=== PATIENT | female | born 1965 | race Caucasian/White ===

== ENCOUNTER → 2018-09-27 | Outpatient (CLI) | payer OTHER ==
[~2018-09-27] MED LIST: BUPIVACAINE MPF 0.5% 10 ML VIAL for KCIC. IM ONE; EXEN2VIA SQ; IOHEXOL 300 MG/ML 50 ML VIAL. INT ART ONE; LIDOCAINE 1% Multi-Dose 20 ML VIAL. ID ONE; SITA25TA PO; methylPREDNISolone ACETATE 40 MG/ML VIAL. INT ART ONE
--- NOTE | 2018-09-27 16:55 | KCIC ---
Examination: Fluoro Guided Therapeutic injection right hip. History: Right hip pain Relative benefits risks and alternatives to the procedure were discussed and verbal and written informed consent was obtained. The patient was carefully prepped and draped in a sterile fashion. Lidocaine was used for local anesthesia. A 22-gauge spinal needle was advanced to the level of the hip joint at the femoral neck. 2 a mixture of 4 cc of lidocaine, 4 cc of bupivacaine, 4 cc of Omnipaque 300 and 80 mg of Depo-Medrol was injected. Digital image was obtained showing contrast in the joint. Single fluoroscopic image was obtained. Impression: Therapeutic injection right hip. 26 seconds of fluoroscopy was used for the procedure. Electronically signed by: Nikolas Spain MD (09/27/2018 4:52 PM) [id number]
== END ==
LOC: KCIC 14:58
PROVIDERS: ATTEND Orthopaedic Surgery Sports Medicine
DX: M25.551 Pain in right hip (principal)
CPT/HCPCS: 20610; 77002; J1030; Q9967

== ENCOUNTER → 2021-01-23 | Outpatient (CLI) | payer OTHER ==
[~2021-01-23] MED LIST changes: -BUPIVACAINE MPF 0.5% 10 ML VIAL for KCIC. IM ONE; -IOHEXOL 300 MG/ML 50 ML VIAL. INT ART ONE; -LIDOCAINE 1% Multi-Dose 20 ML VIAL. ID ONE; -methylPREDNISolone ACETATE 40 MG/ML VIAL. INT ART ONE
--- NOTE | 2021-01-23 11:31 | KCIC ---
MRI STUDY OF THE LEFT ANKLE/HINDFOOT WITHOUT CONTRAST Clinical indications: Left foot drop. Chronic left ankle pain. TECHNIQUE: Noncontrast MRI sequences of the left ankle and left hindfoot and midfoot and proximal for efoot to the level of the distal metatarsals was performed in all 3 planes. FINDINGS: There is focal osteochondral signal abnormality involving the medial dome of talus with los s of overlying articular cartilage. No unstable osteochondral fragment is evident by MRI. There is mi ld reactive cortical bone marrow edema of the apposing tibial plafond. No fracture is evident. Small mortise ankle joint effusion is seen. The Achilles tendon is intact. The plantar aponeurosis is intac t and there is a moderate-sized plantar spur of the calcaneus. The flexor tendons are intact and no t enosynovitis is seen. There is a longitudinal split tear of the peroneus brevis tendon. Peroneus long us tendon is intact. No significant tenosynovitis is seen. The extensor tendons are intact without te nosynovitis. The distal interosseous ligament and anterior/posterior tibiofibular ligaments and anter ior/posterior talofibular ligaments and calcaneofibular ligament and deltoid ligament and spring liga ment are intact. Sinus tarsi is unremarkable and the talocalcaneal and cervical ligaments are intact. Periarticular ganglion cyst is seen just anterior to the lateral aspect of the tibiotalar joint comp artment measuring 12 mm. IMPRESSION: Focal osteochondral lesion with loss of articular cartilage of the medial dome of the trevon us. No unstable osteochondral fragment is seen. There is mild subcortical bone marrow edema of the ap posing tibial plafond without osteochondral lesion here. No fracture line is seen. Small mortise ankl e joint effusion. Partial longitudinal split tear of the peroneus brevis tendon without tenosynovitis. No ligament tear. Periarticular ganglion cyst. Electronically signed by: Geovani Daniel MD (01/23/2021 11:29 AM) [place] [id number]
== END ==
LOC: KCIC MRI 07:51
PROVIDERS: ATTEND Family Medicine
DX: S86.312A Strain of muscle(s) and tendon(s) of peroneal muscle group at lower leg level, left leg, initial encounter (principal); M25.472 Effusion, left ankle; M21.372 Foot drop, left foot; M67.48 Ganglion, other site; X58.XXXA Exposure to other specified factors, initial encounter; Y93.89 Activity, other specified; Y92.89 Other specified places as the place of occurrence of the external cause; Y99.8 Other external cause status
CPT/HCPCS: 73721